=== PATIENT | male | born 1980 | race Caucasian/White ===

== ENCOUNTER 2016-12-13 12:16 | Emergency (ER) | payer MEDICAID, OTHER ==
[~2016-12-13] VITALS: Ht 182.9 cm; Wt 81.6 kg
[~2016-12-13 12:16] MED LIST: AMOXIL500 M1 PO; DARVON-N100 MG PO; IBU800 M1 PO; LEVAQUIN750 MG PO; LORTAB 5/500 501 TAB PO; NOMEDS; PERCOCET 10 MG1 EACH PO; PREDNISONE50 MG PO; SILVADENE400 GM/JAR EX; SULFAMETHOXAZOL1 TA6 PO; TRIAMCINOLON 0.80 G2 TP; ULTRAM50 MG PO; VICODIN 5/6 EACH/PAK OR; VOLTAREN75 MG PO
[2016-12-13 12:21] VITALS: BP 150/101
--- NOTE | 2016-12-13 12:29 | Emergency Room Report ---
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 N Clinical Suspician of Infection? N Mental Status: 1 - Regular (Normal Baseline) Sepsis Risk:Low Sepsis Risk Have you (or family members/close friends) recently traveled outside the [place]? N If Yes, where/when: Have you had exposure to infectious disease within the past month? TB? Other? Specify: Comment The patient is brought in by police for medical clearance to go to halfway. The patient admits to using intravenous cocaine repetitively since Monday, last used it about 9 AM. He says he drank 3 beers today as well, last alcohol intake at about the same time. He says that he has a headache which has occurred from all the stress of being arrested, but he has no other physical complaints. He says he just got out of [facility] on Monday 6 days ago for treatment for alcohol addiction. He says he is supposed to be on Seroquel, clonidine, and trazodone, but has not refilled his prescriptions and has not taken them since last Monday 6 days ago. ALLERGIES Coded Allergies: NO KNOWN ALLERGIES (12/13/16) Home Medications Reported Medications No Known Home Medications History Medical History General Angina: No [place]: No Hypertension? Yes Hyperlipidemia? No COPD? No Asthma? No CVA? No Seizures? No Diabetes? No GB Disease: No MRSA? Yes TB? No Cancer? No Immunization Hx Ped.Immunizations UTD Yes DT/Tetanus Unknown Surgical Hx Previous Surgery?N Social History Smoking Hx Smoker: Current Every Day Smoker Tobacco: Yes Type N/A Packs/day 1 1/2 - 2 Packs Alcohol Alcohol: Yes Review of Systems All Other Systems Reviewed and Negative Constitutional denies fever Eyes denies blindness, denies blurred vision Respiratory denies shortness of breath Cardiovascular denies chest pain Gastrointestinal denies abdominal pain, denies diarrhea, denies vomiting Psychiatric/Neurological headache Physical Exam Vital Signs Vital Signs Date Time Temp Pulse Resp B/P Pulse O2 O2 Flow FiO2 Ox Delivery Rate 12/13 1221 98.3 102 18 150/101 98 General Appearance normal appearance, WD/WN, mild smell of alcoholic beverage on his breath. Speech is clear. He is coherent and appears to have decision-making capacity. He is not tremulous and is not showing signs of alcohol withdrawal, nor severe impairment. Eye Exam - bilateral eye normal exam, bilateral eye PERRL, bilateral eye EOMI Ear, Nose, Throat hearing grossly normal, normal ENT inspection Neck normal inspection, non-tender, supple, full range of motion Respiratory Status Yes: trachea midline, chest symmetrical, non tender chest. No: respiratory distress. Lung Sounds bilateral: normal breath sounds, lungs clear. Cardiovascular normal exam, regular rate/rhythm (heart rate 96), no peripheral edema, no gallop, no JVD, no murmur, no rub, normal peripheral pulses Peripheral Pulses Pulses normal Yes Gastrointestinal normal bowel sounds, normal exam, non tender, soft, no organomegaly Back normal inspection, no CVA tenderness, no vertebral tenderness Extremities non-tender, normal range of motion, normal inspection Neurologic alert, manager validation II-XII nml as tested, normal exam, oriented x 3 Mental status normal mood/affect Skin intact, normal color, warm/dry, intravenous drug use tract buck on dorsum of RIGHT hand Medical Decision Making LABS/Meds/Orders Pt receiving controlled substance in ED? No Progress - The patient is requesting to be released to go to halfway. He denies wanting any further evaluation or treatment. The patient has been medically evaluated and I find no significant medical condition to prevent disposition to halfway. The patient is medically cleared. Departure Departure Disposition DC Home or Self Care(routine) Clinical Impression Primary Impression: Substance abuse Condition STABLE Referrals [facility] Patient Instructions DI for Alcohol Abuse, DI for Cocaine Use Disorder Additional Instructions Follow-up with your primary care provider for further treatment of your blood pressure and refills of your medications. Prescriptions Current Visit Scripts No Known Home Medications ED Critical Care Critical Care No at 1244
--- NOTE | 2016-12-13 12:29 | Emergency Room Report ---
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 N Clinical Suspician of Infection? N Mental Status: 1 - Regular (Normal Baseline) Sepsis Risk:Low Sepsis Risk Have you (or family members/close friends) recently traveled outside the [place]? N If Yes, where/when: Have you had exposure to infectious disease within the past month? TB? Other? Specify: Comment The patient is brought in by police for medical clearance to go to [facility]. The patient admits to using intravenous cocaine repetitively since Monday, last used it about 9 AM. He says he drank 3 beers today as well, last alcohol intake at about the same time. He says that he has a headache which has occurred from all the stress of being arrested, but he has no other physical complaints. He says he just got out of [facility] on Monday 6 days ago for treatment for alcohol addiction. He says he is supposed to be on Seroquel, clonidine, and trazodone, but has not refilled his prescriptions and has not taken them since last Monday 6 days ago. ALLERGIES Coded Allergies: NO KNOWN ALLERGIES (12/13/16) Home Medications Reported Medications No Known Home Medications History Medical History General Angina: No [place]: No Hypertension? Yes Hyperlipidemia? No COPD? No Asthma? No CVA? No Seizures? No Diabetes? No GB Disease: No MRSA? Yes TB? No Cancer? No Immunization Hx Ped.Immunizations UTD Yes DT/Tetanus Unknown Surgical Hx Previous Surgery?N Social History Smoking Hx Smoker: Current Every Day Smoker Tobacco: Yes Type N/A Packs/day 1 1/2 - 2 Packs Alcohol Alcohol: Yes Review of Systems All Other Systems Reviewed and Negative Constitutional denies fever Eyes denies blindness, denies blurred vision Respiratory denies shortness of breath Cardiovascular denies chest pain Gastrointestinal denies abdominal pain, denies diarrhea, denies vomiting Psychiatric/Neurological headache Physical Exam Vital Signs Vital Signs Date Time Temp Pulse Resp B/P Pulse O2 O2 Flow FiO2 Ox Delivery Rate 12/13 1221 98.3 102 18 150/101 98 General Appearance normal appearance, WD/WN, mild smell of alcoholic beverage on his breath. Speech is clear. He is coherent and appears to have decision-making capacity. He is not tremulous and is not showing signs of alcohol withdrawal, nor severe impairment. Eye Exam - bilateral eye normal exam, bilateral eye PERRL, bilateral eye EOMI Ear, Nose, Throat hearing grossly normal, normal ENT inspection Neck normal inspection, non-tender, supple, full range of motion Respiratory Status Yes: trachea midline, chest symmetrical, non tender chest. No: respiratory distress. Lung Sounds bilateral: normal breath sounds, lungs clear. Cardiovascular normal exam, regular rate/rhythm (heart rate 96), no peripheral edema, no gallop, no JVD, no murmur, no rub, normal peripheral pulses Peripheral Pulses Pulses normal Yes Gastrointestinal normal bowel sounds, normal exam, non tender, soft, no organomegaly Back normal inspection, no CVA tenderness, no vertebral tenderness Extremities non-tender, normal range of motion, normal inspection Neurologic alert, tissue technician II-XII nml as tested, normal exam, oriented x 3 Mental status normal mood/affect Skin intact, normal color, warm/dry, intravenous drug use tract buck on dorsum of RIGHT hand Medical Decision Making LABS/Meds/Orders Pt receiving controlled substance in ED? No Progress - The patient is requesting to be released to go to [facility]. He denies wanting any further evaluation or treatment. The patient has been medically evaluated and I find no significant medical condition to prevent disposition to [facility]. The patient is medically cleared. Departure Departure Disposition DC Home or Self Care(routine) Clinical Impression Primary Impression: Substance abuse Condition STABLE Referrals [facility] Patient Instructions DI for Alcohol Abuse, DI for Cocaine Use Disorder Additional Instructions Follow-up with your primary care provider for further treatment of your blood pressure and refills of your medications. Prescriptions Current Visit Scripts No Known Home Medications ED Critical Care Critical Care No at 1243
== END 2016-12-13 12:51 | disposition home or self-care (01) ==
LOC: ER 12:16
DX: Z02.89 Encounter for other administrative examinations (principal); F14.10 Cocaine abuse, uncomplicated; Z72.89 Other problems related to lifestyle; Z72.0 Tobacco use